=== PATIENT | male | born 1965 | race Caucasian/White ===

== ENCOUNTER 2016-10-14 10:43 | Observation (INO) ==
[2016-10-14] MEDS ORDERED: *HR* FentaNYL (PF) 100 MCG/2 ML VIAL IVP ONE ×2 (11:04→12:30)
[2016-10-14] MEDS ORDERED: 0.9 % Sodium Chloride 1,000 ML IVC ONE (11:04)
[2016-10-14] MEDS ORDERED: Ondansetron 4 MG/2 ML VIAL IVP ONE (11:04)
--- NOTE | 2016-10-14 11:05 | Emergency Department Note ---
Disposition Clinical Impression: Symptomatic cholelithiasis Disposition: Admitted As Inpatient Condition: Good Abdominal Pain HPI - General Chief Complaint: ED Abdominal Pain Stated Complaint: abd pain Time Seen by Provider: 10/14/16 10:53 Source: patient Nursing Notes Reviewed: Yes Vital Signs Reviewed: Yes - History of Present Illness HPI Narrative: 51-year-old male presents to the ER with a chief complaint of abdominal pain. Pt Subjective Complaint: abdominal pain Onset (ago): day(s) Consistency: intermittent Location: RUQ Pain Scale: 9 Quality: stabbing Radiation: none Migration to: no migration Improves with: nothing Worsens with: nothing Context: history of similar episodes Associated symptoms: Reports: nausea, vomiting, diarrhea. Denies: fever, constipation, dysuria Treatments prior to arrival: none - Related Data Home Medications Medication Instructions Recorded Confirmed ClonazePAM [Klonopin] 2 mg PO TID 07/27/15 10/13/16 Gabapentin [Neurontin] 800 mg PO TID 07/27/15 10/13/16 Ibuprofen [Motrin] 800 mg PO Q8HR PRN 07/27/15 10/13/16 Lisinopril [Zestril] 20 mg PO DAILY 07/27/15 10/13/16 Previous Rx's Medication Instructions Recorded Pantoprazole Sodium [Protonix] 40 mg PO DAILY #30 tablet. 09/30/16 Ondansetron ODT [Zofran ODT] 4 mg SL Q6HR #12 tab.rapdis 10/13/16 Allergies Allergy/AdvReac Type Severity Reaction Status Date / Time Hydromorphone [From Dilaudid] Allergy Confusion Verified 10/14/16 10:47 All systems ED: reviewed and negative except as stated. Constitutional: Denies: fever Cardiovascular: Denies: chest pain Respiratory: Denies: cough, dyspnea Gastrointestinal: Reports: abdominal pain, nausea, vomiting, diarrhea Musculoskeletal: Denies: back pain Abdominal Pain PMH - Past Medical History Medical history: Reports: hypertension, pulmonary embolus Male Surgical History: Reports: orthopedic, other, other Psychiatric history: Reports: anxiety - Social History Smoking status: Current every day smoker Alcohol use: Reports: none Drug use: Reports: none Physical Exam - General Limitations: no limitations General appearance: alert, in no apparent distress - Head Head exam: atraumatic, normocephalic, normal inspection - Eye Eye exam: Present: normal appearance - ENT ENT exam: normal exam - Neck Neck exam: Present: normal inspection - Chest Chest inspection: Present: normal inspection, symmetric chest wall rise - Respiratory Respiratory exam: Present: normal lung sounds bilaterally - Cardiovascular Cardiovascular exam: Present: regular rate, normal rhythm, normal heart sounds - Abdominal Exam Abdominal exam: Present: soft, tenderness (Tenderness to palpation in the right upper quadrant with positive Durbin signs.), Durbin's sign - Extremities Exam Extremities exam: Present: normal inspection, full ROM - Expanded Lower Extremity Exam Hip/Pelvis exam: Present: normal inspection, full ROM Upper leg exam: Present: normal inspection, full ROM Knee exam: Present: normal inspection, full ROM Lower leg exam: Present: normal inspection, full ROM Ankle exam: Present: normal inspection, full ROM Foot/toe exam: Present: normal inspection, full ROM - Neurological Exam Neurological exam: Present: alert - Psychiatric Psychiatric exam: Present: normal affect, normal mood - Skin Skin exam: Present: warm, dry, intact, normal color Course Course Narrative: 51-year-old male presents to the ER with a chief complaint of abdominal pain. Patient reports he has had intermittent abdominal pain for the last few weeks. States that he had an outpatient ultrasound yesterday morning showing concern for an early infection. States he went to another facility where they did lab work and sent him home with nausea medication. He reports that he continued to have pain throughout the night as well as feeling nauseated and vomiting. No history of intra-abdominal procedures. No sick contacts. No fevers and no other home. No other complaints. Plan for patient is to discuss with surgery. - Reevaluation(s) Reevaluation #1: Discussed results of lab work with the patient. Also discussed that surgery was accepting him for admission. - Consultations Consultation #1: I discussed this patient with the on-call surgeon Dr. Monae. Request to obtain a CBC, LFTs and INR. I will call back once results are back. Vital Signs Temperature 98.0 F 10/14/16 10:47 Pulse Rate 90 10/14/16 10:47 Respiratory Rate 18 10/14/16 10:47 Blood Pressure 160/89 10/14/16 10:47 O2 Sat by Pulse Oximetry 98 10/14/16 10:47 Temperature 98.0 F 10/14/16 10:47 Pulse Rate 68 10/14/16 12:30 Respiratory Rate 16 10/14/16 13:10 Blood Pressure 146/85 10/14/16 13:10 O2 Sat by Pulse Oximetry 98 10/14/16 12:30 Oxygen Delivery Oxygen Delivery Room Air Abdominal Pain - MDM Narrative Medical decision making narrative: I examined this patient and my medical decision-making was reviewed with the LEAD PRESSMAN/PA/Advanced Practice Nurse/Resident Physician. I agree with the documented findings, disposition and treatment plan as described except to the extent set forth below. Patient was evaluated today by Dr. Evans and myself, I agree with his evaluation and management plan, supervise care the patient's stay , patient was seen yesterday at outside hospital had ultrasound done and lab work which showed probable cholecystitis and cholelithiasis. He is still having pain today so he came in here to be seen. Nonsurgical abdomen.. Spoke with surgery, Dr. Benedict, she like his labs repeated. We will make him more comfortable then we will discuss the case with her was essentially back. It appears that he will most likely need admission with surgical consultation. He is in agreement with this plan of care. 1200 hrs.: Patient's labs are back and are fairly unremarkable, will discuss with surgery again and most likely bring him into the hospital. - Medical Records Medical records reviewed: Yes I reviewed the patient's medical records. - Lab Data Lab results reviewed: Yes I reviewed the patient's lab results. Result diagrams: 10/14/16 11:23 Lab Results 10/14/16 10/14/16 10/14/16 Range/Units 11:23 11:23 11:23 WBC 7.9 (4.3-11.1) K/mcL RBC 4.58 (4.19-5.50) M/mcL Hgb 14.1 (12.9-16.9) g/dL Hct 41.4 (37.5-50.1) % MCV 90.4 (83.0-100.0) fL MCH 30.8 (28.0-33.3) pg MCHC 34.1 (31.6-35.5) g/dL RDW 13.3 (11.5-14.5) % Plt Count 283 (140-400) K/mcL MPV 8.9 L (9.4-12.4) fL Immature Gran % 0.3 (0-4) % Seg Neutrophils % 51.5 % Lymphocytes % 33.8 % Monocytes % 8.8 % Eosinophils % 5.0 % Basophils % 0.6 % Neutrophils # 4.1 (1.6-8.9) K/mcL Lymphocytes # 2.7 (0.6-4.6) K/mcL Monocytes # 0.7 (0.0-1.3) K/mcL Eosinophils # 0.4 (0.0-0.6) K/mcL Basophils # 0.1 (0.0-0.2) K/mcL Immature Plt Fraction 2.7 (1.1-6.1) % PT 12.2 H (9.4-12.1) Seconds INR 1.1 Total Bilirubin 0.3 (0.2-1.2) mg/dL Direct Bilirubin 0.1 (0.0-0.5) mg/dL Indirect Bilirubin 0.2 (0.0-1.2) mg/dL AST 34 (5-34) Units/L ALT 34 (0-55) Units/L Alkaline Phosphatase 75 (38-126) Units/L Serum Total Protein 8.1 (6.0-8.3) g/dL Albumin 4.2 (3.5-5.0) g/dL Globulin 3.9 H (2.4-3.5) g/dL Albumin/Globulin Ratio 1.1 (1.1-2.2) - Radiology Data Radiology results reviewed: Yes I reviewed the patient's radiology results. S.B.A.R. - S.B.A.R. Situation: Demographics, MOA Background: Presenting Complaint, Relevant PMH, Meds, & Allergies Assessment: Course and respsone to treatment, Patient/Family Expectation, Pertinant Lab Results, Outstanding Labs Recommendation: Barrier(s) to disposition, Recommendation based on pending studies, treatments, or consults S.B.A.R. Report Given to: Dr. Monae
[2016-10-14 11:29] LABS: Basophils # 0.1 K/mcL (0.0-0.2); Basophils % 0.6 %; Eosinophils # 0.4 K/mcL (0.0-0.6); Hematocrit 41.4 % (37.5-50.1); Hemoglobin 14.1 g/dL (12.9-16.9); Immature Granulocytes % 0.3 % (0-4); Immature Platelets 2.7 % (1.1-6.1); Lymphocytes # 2.7 K/mcL (0.6-4.6); Lymphocytes % 33.8 %; Mean Corpuscular HGB Conc 34.1 g/dL (31.6-35.5); Mean Corpuscular Hemoglobin 30.8 pg (28.0-33.3); Mean Corpuscular Volume 90.4 fL (83.0-100.0); Mean Platelet Volume 8.9 fL (9.4-12.4); Monocytes # 0.7 K/mcL (0.0-1.3); Monocytes % 8.8 %; Neutrophils # 4.1 K/mcL (1.6-8.9); Platelet Count 283 K/mcL (140-400); Red Blood Count 4.58 M/mcL (4.19-5.50); Red Cell Distribution Width 13.3 % (11.5-14.5); Segmented Neutrophils % 51.5 %
[2016-10-14 11:42] LABS: Albumin 4.2 g/dL (3.5-5.0); Albumin/Globulin Ratio 1.1 (1.1-2.2); Bilirubin,Direct 0.1 mg/dL (0.0-0.5); Bilirubin,Indirect 0.2 mg/dL (0.0-1.2); Bilirubin,Total 0.3 mg/dL (0.2-1.2); Globulin 3.9 g/dL (2.4-3.5); Total Protein 8.1 g/dL (6.0-8.3)
[2016-10-14 11:58] LABS: INR 1.1; Prothrombin Time 12.2 Seconds (9.4-12.1)
--- NOTE | 2016-10-14 13:44 | General Surg History&Physical ---
<Blank Malave - Last Filed: 10/14/16 13:38> Date of Encounter: 10/14/16 Time of Encounter: 13:15 Assessment and Plan (1) Cholecystitis Status: Acute The assessment and plan as outlined above was discussed with the patient and/or family members who expressed understanding and agreement. All questions were answered. NPO IV fluids IV antibiotics To OR for laparoscopic cholecystectomy, possible cholangiogram, possible open with Dr. Monae in the next 24 hours Supportive care/pain control Antibiotic therapy- Mefoxin AM labs (2) Symptomatic cholelithiasis Status: Acute The assessment and plan as outlined above was discussed with the patient and/or family members who expressed understanding and agreement. All questions were answered. NPO IV fluids IV antibiotics To OR for laparoscopic cholecystectomy, possible cholangiogram, possible open with Dr. Monae in the next 24 hours Supportive care/pain control Antibiotic therapy- Mefoxin AM labs (3) Hypertension Status: Chronic The assessment and plan as outlined above was discussed with the patient and/or family members who expressed understanding and agreement. All questions were answered. Will order home dose of lisinopril Metoprolol IV prn Will continue to monitor and adjust as necessary Qualifiers: Hypertension type: essential hypertension Qualified Code(s): I10 - Essential (primary) hypertension (4) GERD (gastroesophageal reflux disease) Status: Acute The assessment and plan as outlined above was discussed with the patient and/or family members who expressed understanding and agreement. All questions were answered. PPI therapy daily Qualifiers: Esophagitis presence: esophagitis presence not specified Qualified Code(s) : K21.9 - Gastro-esophageal reflux disease without esophagitis (5) Anxiety Status: Chronic The assessment and plan as outlined above was discussed with the patient and/or family members who expressed understanding and agreement. All questions were answered. Ativan prn for anxiety (6) DVT prophylaxis Status: Acute The assessment and plan as outlined above was discussed with the patient and/or family members who expressed understanding and agreement. All questions were answered. EPCDs bilateral lower extremities Heparin 5,000 units SQ twice daily for DVT prophylaxis History of Present Illness Chief complaint: RUQ abdominal pain with associated nausea and vomiting HPI: Mr. Lozano is a 51 year old male who presented to the ED at the recommendation of his PCP due to an abnormal US of the gallbladder. He states that he has had epigastric/RUQ pain for the past 1.5 months. He states that initially the pain would come and go. Over the past 1-2 weeks, the pain has become more constant and intense. He states that it radiates into his back. He denies any aggrevating or alleviating factors. Does not seem to be affected by food/drink. He admits having nausea/vomiting on and off for the past 2 weeks. Denies any hematemesis or coffee ground emesis. Admits to bloating and significant increase in reflux symptoms. Admits to headaches over the past 1-2 weeks. Admits to fevers of 100.1 yesterday. Admits to diarrhea 2-3 times per day over the past 2 weeks. Denies any melena or hematochezia. Denies any chest pains or shortness of breath. Denies any difficulty with urination and states his urine is clear, yellow. He had an US complete yesterday which shows evidence of cholelithiasis and mild cholecystitis. The patient will be admitted to the hospital for further work-up and treatment. Past Med Surg Social Fam HX - Past Medical History Source: patient, old records reviewed Medical history: GERD, hypertension, pulmonary embolus (occurred after a right leg surgery, not on any blood thinners), other (chronic back pain, DDD with bulging discs, Empyema) Psychiatric history: anxiety - Past Surgical History Surgical History: orthopedic, other (right tibial/fibula fracture, left arm fracture, RLE MRSA infection), other (right lung surgery (empyema, blood clot)) - Social History Smoking Status: Current every day smoker Packs per day: 0.5 Smokeless Tobacco Status: No Alcohol use: none Drug use: none Current living situation: Home - Independent Activity Level: Independent ambulation - Family History Mother Living Status: Age at : 58 Cause of : CHF Hx Family Cardiac Disorders: Yes (CHF, Scarlet fever as a child) Father Living Status: Age at : 83 Cause of : Heart Disease Hx Family Cardiac Disorders: Yes Hx Family Neurologic Disorders: Yes (CVA) Medications and Allergies ClonazePAM [Klonopin] 2 mg PO TID 07/27/15 [History] Gabapentin [Neurontin] 800 mg PO TID 07/27/15 [History] Ibuprofen [Motrin] 800 mg PO Q8HR PRN 07/27/15 [History] Lisinopril [Zestril] 20 mg PO DAILY 07/27/15 [History] Docusate [Colace] 100 mg PO BID #30 capsule 10/15/16 [Rx] OxyCODONE/APAP 5/325 [Percocet 5/325 MG] 1 each PO Q6HR PRN #30 tablet 10/15/16 [Rx] Allergies Hydromorphone [From Dilaudid] Adverse Reaction (Verified 10/14/16 14:04) Hallucinating Review of Systems All systems PM: reviewed and no additional remarkable complaints except as stated (in the HPI) All systems PM: A 10-system review of systems was performed and is negative for pertinent findings except as documented above in the HPI. General Surgery Exam Initial Vital Signs Temp Pulse Resp BP Pulse Ox 98.0 F 90 18 160/89 98 10/14/16 10:47 10/14/16 10:47 10/14/16 10:47 10/14/16 10:47 10/14/16 10:47 - General physical appearance well developed, well nourished, moderate pain - Eyes normal ocular movement - ENT normal mucosa, atraumatic, normocephalic - Neck trachea midline - Respiratory normal respiratory effort, clear to auscultation - Cardiovascular Cardiovascular exam: Present: RRR, 15, 16 - Abdomen Abdomen general surgery: Present: bowel sounds present, soft, tender Abdominal Tenderness: Present: epigastic, LUQ - Integumentary Integumentary general surgery: Present: warm and dry - Neurologic Present: CN 2-12 grossly intact - Psychiatric Psychiatric general surgery: Present: appropriate, oriented to person, oriented to place, oriented to time, speech is normal, memory intact Results - Labs 10/14/16 11:23 Abnormal lab results MPV 8.9 fL (9.4-12.4) L 10/14/16 11:23 PT 12.2 Seconds (9.4-12.1) H 10/14/16 11:23 Globulin 3.9 g/dL (2.4-3.5) H 10/14/16 11:23 All other labs normal. - Imaging US - abdomen: report reviewed - Attending Attestation I examined this patient and my medical decision-making was reviewed with the WELDER APPRENTICE GAS/PA/Advanced Practice Nurse/Resident Physician. I agree with the documented findings, disposition and treatment plan as described except to the extent set forth below. <Yojana Monae - Last Filed: 10/16/16 18:16> Time of Encounter: 17:30 Assessment and Plan (1) Cholecystitis Status: Acute The assessment and plan as outlined above was discussed with the patient and/or family members who expressed understanding and agreement. All questions were answered. (2) Cholelithiases Status: Acute Discussed the lab results and imaging with the patient. Given his symptoms he has symptomatic cholelithiasis and possibly acute cholecystitis. We will plan a laparoscopic, possible Teresa Grams, possible open cholecystectomy. Risks and benefits were discussed with the patient and he wishes to proceed. The assessment and plan as outlined above was discussed with the patient and/or family members who expressed understanding and agreement. All questions were answered. Qualifiers: Cholelithiasis location: gallbladder Cholecystitis presence: with cholecystitis Cholecystitis acuity: acute Biliary obstruction: without biliary obstruction Qualified Code(s): K80.00 - Calculus of gallbladder with acute cholecystitis without obstruction (3) DVT prophylaxis Status: Acute The assessment and plan as outlined above was discussed with the patient and/or family members who expressed understanding and agreement. All questions were answered. (4) Hypertension Status: Chronic The assessment and plan as outlined above was discussed with the patient and/or family members who expressed understanding and agreement. All questions were answered. Qualifiers: Hypertension type: essential hypertension Qualified Code(s): I10 - Essential (primary) hypertension History of Present Illness HPI: Mr. Lozano is a 51 year old male Review of Systems All systems PM: A 10-system review of systems was performed and is negative for pertinent findings except as documented above in the HPI. General Surgery Exam Initial Vital Signs Temp Pulse Resp BP Pulse Ox 98.0 F 90 18 160/89 98 10/14/16 10:47 10/14/16 10:47 10/14/16 10:47 10/14/16 10:47 10/14/16 10:47 - General physical appearance well developed, well nourished, no distress - Eyes PERRL, normal ocular movement - ENT normal mucosa, normocephalic - Neck trachea midline - Respiratory normal respiratory effort - Cardiovascular Cardiovascular exam: Present: RRR - Abdomen Abdomen general surgery: Present: bowel sounds present, soft, tender. Absent: guarding, rebound Abdominal Tenderness: Present: epigastic, RUQ - Integumentary Integumentary general surgery: Present: warm and dry - Neurologic Present: CN 2-12 grossly intact - Musculoskeletal Present: normal gait, normal posture - Psychiatric Psychiatric general surgery: Present: A&Ox3, speech is normal Results - Labs 10/15/16 05:49 10/15/16 05:49 Abnormal lab results WBC 11.7 K/mcL (4.3-11.1) H 10/15/16 05:49 RBC 3.94 M/mcL (4.19-5.50) L 10/15/16 05:49 Hgb 12.5 g/dL (12.9-16.9) L D 10/15/16 05:49 Hct 36.0 % (37.5-50.1) L 10/15/16 05:49 Neutrophils # 10.2 K/mcL (1.6-8.9) H 10/15/16 05:49 PT 12.2 Seconds (9.4-12.1) H 10/14/16 11:23 Glucose 163 mg/dL (70-99) H 10/15/16 05:49 POC Glucose 152 (58-89) H 10/15/16 05:53 AST 118 Units/L (5-34) H 10/15/16 05:49 ALT 122 Units/L (0-55) H 10/15/16 05:49 All other labs normal. - Imaging US - abdomen: report reviewed - Attending Attestation I examined this patient and my medical decision-making was reviewed with the WELDER APPRENTICE GAS/PA/Advanced Practice Nurse/Resident Physician. I agree with the documented findings, disposition and treatment plan as described except to the extent set forth below.
[2016-10-14] MEDS ORDERED: Ondansetron 4 MG/2 ML VIAL IVP PRN ×2 (13:56→20:08)
[2016-10-14] MEDS ORDERED: Naloxone 0.4 MG/ML INJ IVP PRN ×2 (13:56→20:08)
[2016-10-14] MEDS ORDERED: *HR* Metoprolol 5 MG/5 ML VIAL IVP PRN ×2 (13:56→20:08)
[2016-10-14] MEDS ORDERED: 0.9 % Sodium Chloride 1,000 ML IVC SCH ×2 (14:00→20:08)
[2016-10-14] MEDS ORDERED: *HR* HYDROmorphone (PF) 1 MG/ML SYRINGE IVP PRN (14:00)
[2016-10-14] MEDS ORDERED: *HR* LORazepam 2 MG/ML VIAL IVP PRN (14:03)
[2016-10-14] MEDS ORDERED: Pantoprazole 40 MG VIAL IVP ONE (14:07)
--- NOTE | 2016-10-14 15:59 | Anesthesia Evaluation PreOp ---
Date of Encounter: 10/14/16 Time of Encounter: 15:57 - Past History Planned Operation: Lap cholecystectomy with cholangiogram Cardiac History: HTN Pulmonary History: Smoker, Other (h/o PE) DEBURR OPERATOR History: Other (anxiety) Other Medical History: GERD Anesthesia History: No Prior Anesthetic Complications, Past Anesthesia (r lung, r le orif, l ue orif) Alcohol Use: none Drug use: none Medications and Allergies ClonazePAM [Klonopin] 2 mg PO TID 07/27/15 [History] Gabapentin [Neurontin] 800 mg PO TID 07/27/15 [History] Ibuprofen [Motrin] 800 mg PO Q8HR PRN 07/27/15 [History] Lisinopril [Zestril] 20 mg PO DAILY 07/27/15 [History] Allergies Hydromorphone [From Dilaudid] Adverse Reaction (Verified 10/14/16 14:04) Hallucinating - Meds/Allergy Pre-op Review Medications Reviewed: Yes Allergies Reviewed: Yes Beta Blockers on Current Med List: No Anesthesia Results - Labs 10/14/16 11:23 Laboratory Tests 10/13/16 10/14/16 14:33 11:23 PT 12.2 H INR 1.1 Sodium 143 Potassium 4.2 Creatinine 0.98 - Imaging EKG: report reviewed (sr,incomprbbb) Anesthesia Exam Vital Signs/O2 Sat/Glucose, Most Current Temp Pulse Resp BP Pulse Ox 10/14/16 15:20 97.9 F 70 17 132/75 93 L 10/14/16 13:10 16 146/85 10/14/16 12:30 68 16 127/71 98 Height: 1.73 Weight: 91 NPO (# of Hours): coffee cream/sugar 11 - HEENT Pupil (Motor): Pupils equal, EOMI Mallampati: I Teeth: Poor dentition Oral Opening: Greater than 3 - DEBURR OPERATOR LOC: Oriented DEBURR OPERATOR Motor: Normal RUE, Normal LUE, Normal RLE, Normal LLE, Normal Face DEBURR OPERATOR Sensory: Normal: RUE, LUE, RLE, LLE, Face - Cardiac Rhythm: Regular Murmur: None - Pulmonary Breath Sounds: bilateral Clear Respiratory Effort: Symmetrical Anesthesia Assess/Plan ASA Score: 2 Modified Rosi Scale for Level of Consciousness: Cooperative, oriented, and tranquil Anesthetic Plan: General Monitoring Plan: Standard Monitors Recovery Plan: PACU
[2016-10-14] MEDS ORDERED: cefOXitin 2,000 MG in D5% in Water (Mini-Bag+) 100 ML IVPB SCH (16:00)
[2016-10-14] MEDS ORDERED: Ipratropium/Albuterol Neb 3 ML IH SCH (16:00)
[2016-10-14] MEDS ORDERED: Ondansetron 4 MG/2 ML VIAL ONE (16:29)
[2016-10-14] MEDS ORDERED: *HR* Rocuronium Bromide 50 MG/5 ML VIAL ONE (16:29)
[2016-10-14] MEDS ORDERED: *HR* Succinylcholine 200 MG/10 ML VIAL IVP ONE (16:29)
[2016-10-14] MEDS ORDERED: *HR* Propofol 200 MG/20 ML VIAL IVP ONE (16:29)
[2016-10-14] MEDS ORDERED: Neostigmine Methylsulfate 3 MG/3 ML SYRINGE ONE ×2 (16:29→18:53)
[2016-10-14] MEDS ORDERED: *HR* FentaNYL (PF) 100 MCG/2 ML VIAL ONE (16:29)
[2016-10-14] MEDS ORDERED: Lidocaine -MPF 2% 2 ML VIAL ONE (16:32)
[2016-10-14] MEDS ORDERED: Lidocaine -MPF 4% 5 ML AMPUL ONE (16:33)
[2016-10-14] MEDS ORDERED: *HR* Promethazine 25 MG/ML VIAL IVP PRN (18:11)
[2016-10-14] MEDS ORDERED: *HR* Morphine 2 MG/ML SYRINGE IVP PRN (18:11)
[2016-10-14] MEDS ORDERED: *HR* FentaNYL (PF) 100 MCG/2 ML VIAL IVP PRN (18:11)
[2016-10-14] MEDS ORDERED: CefOXitin 2,000 MG VIAL IVPB ONE (18:12)
[2016-10-14] MEDS ORDERED: Ipratropium/Albuterol Neb 3 ML IH ONE (18:15)
[2016-10-14] MEDS ORDERED: Ketorolac 30 MG/ML VIAL ONE (18:23)
[2016-10-14] MEDS ORDERED: Dexamethasone 4 MG/ML VIAL ONE (18:23)
[2016-10-14] MEDS ORDERED: EPHEDrine 50 MG/ML VIAL ONE (18:26)
--- NOTE | 2016-10-14 19:16 | Operative Note ---
Date of procedure: 10/14/16 Pre-op diagnosis: cholecystitis, cholelithiasis Post-op diagnosis: same Procedure: Laparoscopic cholecystectomy Complications: none immediate Anesthesia: GETA, local Local Anesthetics: 0.5% Sensorcaine HCL SubQ (cc) (30) Surgeon: Yojana Monae Aerial Advertiser Other: Rodolfo Manzo Estimated blood loss (cc): 5 Specimen: gallbladder and contents Condition: stable Disposition: PACU Procedure in Detail: The patient was brought into the operating suite and placed supine on the operating table. Sign-in was performed and everyone was in agreement. Anesthesia was induced and patient was endotracheally intubated by anesthesia without incident and they also placed an OG tube. The abdomen was prepped and draped in the usual sterile fashion. A timeout was performed again everyone was in agreement. A supraumbilical incision was made through the skin into the subcutaneous tissue with an 11 blade. Towel clamps were placed on either side of the umbilicus for retraction. S retractors were used to dissect down to the anterior abdominal wall linea alba fascia. A Veress needle was placed through this incision and a water drop test confirmed placement and the abdomen was insufflated. The abdomen was entered with a 5 mm 0 degree laparoscope on a 5 mm X-yamila trocar. The area and entry was visualized was no bleeding and no apparent bowel injury. A 5 mm subxiphoid port was placed under direct visualization after first incising the skin with an 11 blade. A right upper quadrant subcostal position midclavicular line 5 mm port was placed under direct visualization after first incising skin with 11 blade. The laparoscope was placed in this and we exchanged the supraumbilical port for a 12 mm port under direct visualization. The last 5 mm port was placed in the right upper quadrant subcostal position anterior axillary line after first incising the skin with an 11 blade. The patient was placed in steep reverse Trendelenburg left side down position. The dome of the gallbladder was grasped and retracted cephalad. Omental adhesions to the body and infundibulum of the gallbladder were taken down bluntly with the [place]. The infundibulum was grasped and retracted laterally. Using the [place] we dissected out the cystic duct and cystic artery. Three 5 mm hemoclips were placed distally on the cystic duct one proximally and it was transected with curved scissors. The cystic artery was doubly clipped proximally, once distally and transected with curved scissors. The gallbladder was removed off the cystic plate with the Bovie. Any bleeding points were stopped with the Bovie. The gallbladder was placed in a laparoscopic Endo Catch bag and removed via the supraumbilical incision site. The inferior edge of the liver was bluntly retracted cephalad and the cystic plate was copiously irrigated with sterile saline. There was no bleeding or apparent bile leak from the cystic plate and the clips on the cystic artery and duct were intact. All irrigation was suctioned free from the abdomen. All insufflation was suctioned free from the abdomen and the ports removed. The abdominal wall at the supraumbilical incision site was closed with a 0 Vicryl [id number] stitch. 30 mL of 0.5% Marcaine was injected subcutaneously at the 4 port sites. The skin at the three 5 mm port sites were closed with 4-0 Monocryl interrupted subcuticular stitches. The skin at the supraumbilical incision site was closed with a 4-0 Monocryl running subcuticular stitch. Steri -Strips were applied to all wounds. The patient was awoken in the operating suite having tolerated the procedure well and were taken to PACU in stable condition after all lap and ensuring counts were correct at the end of the case.
--- NOTE | 2016-10-14 20:08 | Anesthesia Evaluation Post Op ---
Date of Encounter: 10/14/16 Time of Encounter: 19:55 - Vital Signs Vital Signs: Vital Signs/O2 Sat/Glucose, Most Current Temp Pulse Resp BP Pulse Ox 10/14/16 19:45 97.7 F 81 16 157/96 97 10/14/16 19:35 69 16 148/90 100 10/14/16 19:25 70 16 152/95 97 10/14/16 19:15 97.2 F L 77 16 152/93 100 10/14/16 16:46 18 95 - Lungs Lungs: Clear Ascult./Percussion - Airway Airway: Non-obstructed - Cardiovascular Regular Rate - Mental Status Mental Status: Alert & Oriented, Answers Appropriately - Pain Pain Scale: 0 Pain Scale used: Numeric (1 - 10) - Nausea Vomiting Nausea Vomiting: Not Present - Hydration Hydration: Tolerates oral liquids, Has not voided - Discharge PostOp Status: Transfer Patient to floor Anes Supervising Prov Stmt: Pt seen/evaluated, VSS and pt has met criteria for discharge to floor. - MD Henrry
[2016-10-14] MEDS ORDERED: clonazePAM 1 MG TABLET PO SCH (21:00)
[2016-10-14] MEDS: clonazePAM 1 MG TABLET PO SCH (22:03)
[2016-10-14] MEDS: *HR* Morphine 2 MG/ML SYRINGE IVP PRN (22:03)
[2016-10-14] MEDS: Ipratropium/Albuterol Neb 3 ML IH SCH (22:30)
[2016-10-15] MEDS: cefOXitin 2,000 MG in D5% in Water (Mini-Bag+) 100 ML IVPB SCH ×2 (01:01→07:46)
[2016-10-15] MEDS: *HR* Morphine 2 MG/ML SYRINGE IVP PRN (03:16)
[2016-10-15] MEDS: Ipratropium/Albuterol Neb 3 ML IH SCH ×2 (04:27→10:25)
[2016-10-15 06:07] LABS: Basophils % 0.1 %; Immature Granulocytes % 0.8 % (0-4); Lymphocytes # 1.1 K/mcL (0.6-4.6); Lymphocytes % 9.3 %; Mean Corpuscular HGB Conc 34.7 g/dL (31.6-35.5); Mean Corpuscular Hemoglobin 31.7 pg (28.0-33.3); Mean Corpuscular Volume 91.4 fL (83.0-100.0); Mean Platelet Volume 9.5 fL (9.4-12.4); Monocytes # 0.3 K/mcL (0.0-1.3); Monocytes % 2.2 %; Neutrophils # 10.2 K/mcL (1.6-8.9); Platelet Count 221 K/mcL (140-400); Red Blood Count 3.94 M/mcL (4.19-5.50); Red Cell Distribution Width 13.2 % (11.5-14.5); Segmented Neutrophils % 87.6 %
[2016-10-15 06:12] LABS: Hemoglobin 12.5 g/dL (12.9-16.9)
[2016-10-15 06:21] LABS: Alanine Aminotransferase 122 Units/L (0-55); Albumin 3.7 g/dL (3.5-5.0); Albumin/Globulin Ratio 1.1 (1.1-2.2); Alkaline Phosphatase 64 Units/L (38-126); Aspartate Amino Transferase 118 Units/L (5-34); BUN/Creatinine Ratio 13 (6-26); Bilirubin,Direct 0.1 mg/dL (0.0-0.5); Bilirubin,Indirect 0.2 mg/dL (0.0-1.2); Bilirubin,Total 0.3 mg/dL (0.2-1.2); Blood Urea Nitrogen 11 mg/dL (8-26); Calcium 8.8 mg/dL (8.6-10.8); Carbon Dioxide 21 mEq/L (19-29); Chloride 105 mEq/L (98-109); Globulin 3.4 g/dL (2.4-3.5); Glucose 163 mg/dL (70-99); Osmolality,Calculated 289 (280-300); Potassium 4.5 mEq/L (3.5-4.5); Sodium 138 mEq/L (136-145); Total Protein 7.1 g/dL (6.0-8.3); eGFR For African Americans > 60 (> 60); eGFR For Non-African Americans > 60 (> 60)
--- NOTE | 2016-10-15 06:51 | Discharge Summary ---
<Scott Grissom - Last Filed: 10/15/16 10:50> Date of Encounter: 10/15/16 Time of Encounter: 06:35 - Discharge Diagnosis (1) Cholecystitis Priority: Primary Status: Acute (2) GERD (gastroesophageal reflux disease) Priority: Secondary Status: Acute Qualifiers: Esophagitis presence: esophagitis presence not specified Qualified Code(s) : K21.9 - Gastro-esophageal reflux disease without esophagitis (3) Anxiety Priority: Secondary Status: Chronic (4) Hypertension Priority: Secondary Status: Chronic Qualifiers: Hypertension type: essential hypertension Qualified Code(s): I10 - Essential (primary) hypertension - Discharge Medications Prescriptions: OxyCODONE/APAP 5/325 [Percocet 5/325 MG] 1 each PO Q6HR PRN #30 tablet PRN Reason: Pain Docusate [Colace] 100 mg PO BID #30 capsule Home Medications: ClonazePAM [Klonopin] 2 mg PO TID 07/27/15 [History] Gabapentin [Neurontin] 800 mg PO TID 07/27/15 [History] Ibuprofen [Motrin] 800 mg PO Q8HR PRN 07/27/15 [History] Lisinopril [Zestril] 20 mg PO DAILY 07/27/15 [History] Docusate [Colace] 100 mg PO BID #30 capsule 10/15/16 [Rx] OxyCODONE/APAP 5/325 [Percocet 5/325 MG] 1 each PO Q6HR PRN #30 tablet 10/15/16 [Rx] Allergies/Adverse Reactions: Allergies Hydromorphone [From Dilaudid] Adverse Reaction (Verified 10/14/16 14:04) Hallucinating General Surgery Exam Initial Vital Signs Temp Pulse Resp BP Pulse Ox 98.0 F 90 18 160/89 98 10/14/16 10:47 10/14/16 10:47 10/14/16 10:47 10/14/16 10:47 10/14/16 10:47 - General physical appearance well developed, well nourished, no distress - Eyes normal ocular movement - ENT normal mucosa - Neck trachea midline - Respiratory normal respiratory effort, clear to auscultation - Cardiovascular Cardiovascular exam: Present: RRR - Abdomen Abdomen general surgery: Present: bowel sounds present (hypoactive), soft, tender (expected postoperative tenderness) - Incision Incision: Present: clean and dry, intact - Integumentary Integumentary general surgery: Present: warm and dry - Neurologic Present: CN 2-12 grossly intact, normal coordination - Musculoskeletal Present: normal gait, normal posture - Psychiatric Psychiatric general surgery: Present: appropriate, oriented to person, oriented to place, oriented to time, speech is normal, memory intact Date of admission: 10/14/16 12:48 Primary care physician: Hoang Crowe MD Discharging clinician: Yojana Monae Anticipated date of discharge: 10/15/16 - Patient Status Disposition: Home, Self-Care Condition: Good Functional capacity at discharge: independent ambulation Overall status at discharge: patient is back to baseline - Discharge Instructions Follow Up With: Blank Malave CNP [Advanced Practice Nurse] - 10/29/16 10:15 am Hoang Crowe MD [Primary Care Provider] - Additional Instructions: #1 may shower starting today, no tub bath for 2 weeks #2 wash incisions with soap and water and pat dry daily #3 no lifting, pushing, pulling more than 15 pounds for the next 2 weeks #4 no driving until off narcotics for 24 hours and able to safely react in the car #5 may climb stairs - Diet and Activity Activity: increase activity as tolerated Diet: advance to your usual diet - Hospital Course Hospital course: Mr. Lozano is a 51 year old male who presented to the emergency department under the recommendation of his PCP because of an abnormal ultrasound of the gallbladder. He underwent laparoscpoic cholecystectomy on 10/14/16 in the afternoon. He reports that he has been feeling greatly improved since his surgery and hardly has any pain. He has been ambulating and is tolerating a regular diet. He will be discharged in the afternoon in good condition. All questions were answered and the patient is understanding and agreeable to the plan of care. - Time Spent with Patient Total time spent providing and/or coordinating discharge services: Less than 30 minutes Labs on day of discharge: Labs from last 24 hours 10/15/16 10/15/16 10/15/16 05:53 05:49 05:49 WBC 11.7 H RBC 3.94 L Hgb 12.5 L D Hct 36.0 L MCV 91.4 MCH 31.7 MCHC 34.7 RDW 13.2 Plt Count 221 MPV 9.5 Immature Gran % 0.8 Seg Neutrophils % 87.6 Lymphocytes % 9.3 Monocytes % 2.2 Eosinophils % 0.0 Basophils % 0.1 Neutrophils # 10.2 H Lymphocytes # 1.1 Monocytes # 0.3 Eosinophils # 0.0 Basophils # 0.0 Sodium 138 Potassium 4.5 Chloride 105 Carbon Dioxide 21 BUN 11 Creatinine 0.87 Est GFR ( Amer) > 60 Est GFR (Non-Af Amer) > 60 BUN/Creatinine Ratio 13 Glucose 163 H POC Glucose 152 H Calculated Osmolality 289 Calcium 8.8 Total Bilirubin 0.3 Direct Bilirubin 0.1 Indirect Bilirubin 0.2 AST 118 H ALT 122 H Alkaline Phosphatase 64 Serum Total Protein 7.1 Albumin 3.7 Globulin 3.4 Albumin/Globulin Ratio 1.1 - Attending Attestation I examined this patient and my medical decision-making was reviewed with the [employer] CLAIMS ADJUSTER/PA/Advanced Practice Nurse/Resident Physician. I agree with the documented findings, disposition and treatment plan as described except to the extent set forth below. <Yojana Monae - Last Filed: 10/20/16 19:15> - Discharge Diagnosis (1) Cholecystitis Status: Acute (2) Cholelithiases Status: Acute Qualifiers: Cholelithiasis location: gallbladder Cholecystitis presence: with cholecystitis Cholecystitis acuity: acute Biliary obstruction: without biliary obstruction Qualified Code(s): K80.00 - Calculus of gallbladder with acute cholecystitis without obstruction (3) DVT prophylaxis Status: Acute (4) Hypertension Status: Chronic Qualifiers: Hypertension type: essential hypertension Qualified Code(s): I10 - Essential (primary) hypertension General Surgery Exam Initial Vital Signs Temp Pulse Resp BP Pulse Ox 98.0 F 90 18 160/89 98 10/14/16 10:47 10/14/16 10:47 10/14/16 10:47 10/14/16 10:47 10/14/16 10:47 Date of admission: 10/14/16 12:48 Primary care physician: Hoang Crowe MD - Hospital Course Hospital course: Mr. Lozano is a 51 year old male - Time Spent with Patient Total time spent providing and/or coordinating discharge services:
[2016-10-15] MEDS ORDERED: *HR* OxyCODONE/APAP 5/325 TABLET PO PRN ×2 (07:00→07:59)
[2016-10-15 07:36] VITALS: BP 132/79
[2016-10-15] MEDS: clonazePAM 1 MG TABLET PO SCH (07:48)
[2016-10-15] MEDS ORDERED: Pantoprazole 40 MG VIAL IVP SCH (09:00)
[2016-10-15] MEDS ORDERED: Nicotine 14 MG PATCH.TD24 TD SCH ×2 (09:00)
[2016-10-15] MEDS ORDERED: Lisinopril 20 MG TABLET PO SCH ×2 (09:00)
[2016-10-15] MEDS ORDERED: Gabapentin 400 MG CAPSULE PO SCH ×2 (09:00)
== END 2016-10-15 11:03 | disposition home or self-care (01) ==
LOC: EMEROO 10:43 → 3ANU 10:43
PROVIDERS: ADMIT Surgery; ATTEND Surgery